=== PATIENT | male | born 2000 | race Caucasian/White ===

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

== ENCOUNTER 2022-04-09 14:58 | Emergency (ER) | payer MEDICAID, OTHER ==
--- NOTE | 2022-04-09 15:17 | ED Physician Documentation ---
History of Present Illness - Stated complaint Stated Complaint: LUNG PX/C+ - Chief complaint Chief Complaint: Resp - Additonal information Additional information: 19-year-old male presents emergency department for evaluation of lung pain. He reports that he tested positive for COVID about 6 days ago. Most of his symptoms were generalized myalgias, cough and congestion. He states that in general he is feeling better but every once in a while when he takes a deep breath he has a sharp pain. No orthopnea. No significant dyspnea. No lower extremity leg swelling. No history of tobacco or vaping. Takes no routinely prescribed medications. Patient is doubly vaccinated and boosted for COVID Review of Systems Constitutional: reports: Fever, Myalgias Cardiac: denies: Chest pain / pressure, Palpitations, Pedal edema Respiratory: reports: Dyspnea, Cough GI: reports: Reviewed and negative : reports: Reviewed and negative Skin: reports: Reviewed and negative PD PAST MEDICAL HISTORY - Past Surgical History Past Surgical History: No - Present Medications Home Medications: Ambulatory Orders Medication Instructions Recorded Confirmed Azithromycin 250 mg PO DAILY #4 tablet 07/20/15 Benzonatate [Tessalon Perle] 100 mg PO Q6HR PRN #20 capsule 11/10/17 guaiFENesin/CODEINE [Robitussin AC] 5 - 10 ml PO Q6H PRN #100 udc 11/10/17 - Allergies Allergies/Adverse Reactions: Allergies Allergy/AdvReac Type Severity Reaction Status Date / Time No Known Drug Allergies Allergy Verified 04/09/22 15:07 - Social History Does the pt smoke?: No Smoking Status: Never smoker Does the pt drink ETOH?: No Does the pt have substance abuse?: No - Immunizations Immunizations are current?: Yes PD ED PE NORMAL - General General: Alert and oriented X 3, No acute distress, Well developed/nourished - HEENT HEENT: Atraumatic, Moist mucous membranes - Neck Neck: Supple, no meningeal sign, No adenopathy - Cardiac Cardiac: RRR, No murmur - Respiratory Respiratory: No respiratory distress, Clear bilaterally - Abdomen Abdomen: Normal bowel sounds, Soft, Non tender - Back Back: No CVA TTP, No spinal TTP - Derm Derm: Normal color, Warm and dry, No rash - Extremities Extremities: No deformity, Normal ROM s pain - Neuro Neuro: Alert and oriented X 3, 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 He became symptomatic for COVID about a week ago tested +6 days ago. He is fully vaccinated and boosted. He is outside the treatment window for use of Paxlovid or Molnupiravir. On exam he appears remarkably well. Unremarkable cardiopulmonary auscultation. My exam of the chest x-ray reveals no acute focal findings. This patient would not benefit from inpatient hospitalization. I am encouraging him to continue the routine care at home which for him has included Tylenol and ibuprofen. We discussed the need to maintain masking for total of 10 days after positive test result. Otherwise emergent return precautions discussed. Departure - Departure Disposition: Home, Self Care Clinical Impression: COVID-19 virus infection Condition: Stable Record reviewed to determine appropriate education?: Yes Comments: Kai aranda are seen today in the emergency department because you tested positive for COVID-19 almost a week ago. You are outside the treatment window for oral antiviral therapy such as Paxlovid. However when we listen your heart and lungs they sound normal. Your vital signs are normal without low oxygen levels. Your chest x-ray is also normal. There is no findings of infection or pneumonia. I encourage you to continue to use Tylenol and ibuprofen for body aches and discomforts. I would expect that you continue to get better. Discusse this ED visit with your primary care provider. If at any point you have worsening symptoms, develop severe shortness of air, chest pain or have any fainting episodes and please return immediately to the ER for second evaluation
[2022-04-09 16:35] VITALS: BP 135/75
--- NOTE | 2022-04-09 16:51 | XRAY Report ---
PROCEDURE: Chest 1 View X-Ray INDICATIONS: chest pain TECHNIQUE: One view of the chest was acquired. COMPARISON: 11/10/2017 FINDINGS: Surgical changes and devices: None. Lungs and pleura: No pleural effusions or pneumothorax. Lungs are clear. Mediastinum: Mediastinal contours appear normal. Heart size is normal. Bones and chest wall: No suspicious bony lesions. Overlying soft tissues appear unremarkable. IMPRESSION: No acute cardiopulmonary findings Reviewed by: Jone Gonsalez MD on 04/09/2022 3:50 PM [facility] Approved by: Jone Gonsalez MD on 04/09/2022 3:50 PM [facility] Station ID: [id number]
== END 2022-04-09 16:35 | disposition home or self-care (01) ==
LOC: ED 14:58
DX: U07.1 COVID-19 (principal); M79.10 Myalgia, unspecified site; R07.9 Chest pain, unspecified; R05.9 Cough, unspecified; R06.00 Dyspnea, unspecified
CPT/HCPCS: 71045; 99282; 99283; Q9967

== ENCOUNTER 2022-10-21 02:12 | Emergency (ER) | payer MEDICAID ==
[2022-10-21] MEDS ORDERED: KETOROLAC 30 MG/ML VIAL IVP STA (02:30)
[2022-10-21] MEDS ORDERED: SODIUM CHLORIDE 0.9% 1,000 ML IV STA (02:30)
[2022-10-21] MEDS ORDERED: ONDANSETRON 4 MG/2 ML VIAL IVP STA (02:30)
[2022-10-21 02:45] LABS: BASOPHILS % (AUTO) 0.3 %; EOSINOPHILS % (AUTO) 0.4 %; HCT - HEMATOCRIT 44.6 % (42.0-52.0); LYMPHOCYTES # (AUTO) 0.5 10^3/uL (1.5-3.5); LYMPHOCYTES % (AUTO) 5.2 %; MEAN CORPUSCULAR HEMOGLOBIN 28.6 pg (27.0-31.0); MEAN CORPUSCULAR HGB CONC 33.6 g/dL (32.0-36.0); MEAN PLATELET VOLUME 10.4 fL (7.4-11.4); MONOCYTES # (AUTO) 0.6 10^3/uL (0.0-1.0); MONOCYTES % (AUTO) 6.4 %; NEUTROPHILS # (AUTO) 8.3 10^3/uL (1.5-6.6); NEUTROPHILS % (AUTO) 87.4 %; PLT - PLATELET COUNT 244 10^3/uL (130-450); RED BLOOD COUNT 5.25 10^6/uL (4.70-6.10); RED CELL DISTRIBUTION WIDTH 12.9 % (12.0-15.0); WHITE BLOOD COUNT 9.5 x10^3/uL (4.8-10.8)
[2022-10-21 02:54] LABS: ALBUMIN 4.7 g/dL (3.2-5.5); ALBUMIN/GLOBULIN RATIO 1.4 (1.0-2.2); BILIRUBIN,TOTAL 1.1 mg/dL (0.2-1.0); CALCIUM 8.7 mg/dL (8.5-10.3); CREATININE 0.9 mg/dL (0.6-1.2); POTASSIUM 3.6 mmol/L (3.5-5.0)
--- NOTE | 2022-10-21 03:01 | ED Physician Documentation ---
PD HPI NVD - Stated complaint Stated Complaint: FEVER/BODY PX - Chief complaint Chief Complaint: Fever - History obtained from History obtained from: Patient - Additonal information Additional information: Patient is a 22-year-old with no significant prior medical history presenting for evaluation of feeling chills, body aches, vomiting and diarrhea starting this evening around 7 PM. Patient states that he has felt chills and aches tonight and had 1 episode of emesis. He has additionally been having loose stools. He has been able to tolerate some sips of water. He reports feeling slightly lightheaded. He has had a nonproductive cough recently. He denies known sick contacts. He denies recent antibiotic use or travel. He denies blood in stools or emesis. Review of Systems Constitutional: reports: Chills. denies: Fever Cardiac: denies: Chest pain / pressure Respiratory: denies: Dyspnea GI: reports: Nausea, Vomiting, Diarrhea. denies: Abdominal Pain, Bloody / black stool : denies: Dysuria Musculoskeletal: denies: Back pain Neurologic: denies: Headache PD PAST MEDICAL HISTORY - Past Medical History Past Medical History: No - Past Surgical History Past Surgical History: No - Present Medications Home Medications: Ambulatory Orders Medication Instructions Recorded Confirmed Ondansetron Odt [Zofran] 4 mg TL Q6H PRN #10 tablet 10/21/22 minoxidiL [Minoxidil] 2.5 mg PO DAILY 10/21/22 10/21/22 - Allergies Allergies/Adverse Reactions: Allergies Allergy/AdvReac Type Severity Reaction Status Date / Time No Known Drug Allergies Allergy Verified 10/21/22 02:21 - Social History Does the pt smoke?: No Smoking Status: Never smoker Does the pt drink ETOH?: No Does the pt have substance abuse?: No - Immunizations Immunizations are current?: Yes - POLST Patient has POLST: No PD ED PE NORMAL - General General: Alert and oriented X 3, No acute distress, Well developed/nourished - HEENT HEENT: Atraumatic, Moist mucous membranes, Pharynx benign - Neck Neck: Supple, no meningeal sign - Cardiac Cardiac: Other (Tachycardic, regular rhythm) - Respiratory Respiratory: No respiratory distress, Clear bilaterally - Abdomen Abdomen: Soft, Non tender, Non distended, Other (Hyperactive bowel sounds) - Derm Derm: Warm and dry - Neuro Neuro: Normal speech Results - Vitals Vitals: Vital Signs - 24 hr 10/21/22 10/21/22 10/21/22 02:17 02:20 03:44 Temperature 37.2 C 37.2 C 36.4 C L Heart Rate 130 H 130 H 111 H Respiratory 19 19 17 Rate Blood Pressure 130/65 130/65 100/49 L O2 Saturation 95 95 95 Oxygen O2 Source Room air - Labs Labs: Laboratory Tests 10/21/22 10/21/22 02:37 02:37 WBC 9.5 RBC 5.25 Hgb 15.0 Hct 44.6 MCV 85.0 MCH 28.6 MCHC 33.6 RDW 12.9 Plt Count 244 MPV 10.4 Neut # (Auto) 8.3 H Lymph # (Auto) 0.5 L Lamar # (Auto) 0.6 Eos # (Auto) 0.0 Baso # (Auto) 0.0 Absolute Nucleated RBC 0.00 Nucleated RBC % 0.0 Sodium 137 Potassium 3.6 Chloride 106 Carbon Dioxide 21 Anion Gap 10.0 BUN 18 Creatinine 0.9 Estimated GFR (MDRD) 105 Glucose 128 H Calcium 8.7 Total Bilirubin 1.1 H AST 31 ALT 70 H Alkaline Phosphatase 82 Total Protein 8.0 Albumin 4.7 Globulin 3.3 Albumin/Globulin Ratio 1.4 Lipase 38 PD Medical Decision Making - ED course Complexity details: reviewed results, re-evaluated patient, d/w patient ED course: Patient is a 22-year-old presenting for evaluation of nausea, vomiting and diarrhea along with chills and body aches starting this evening. He is afebrile here but noted to be tachycardic. His abdominal exam is benign. He has nonlabored with his breathing.CBC and chemistries were obtained and reviewed without significant findings. Patient is feeling better after IV fluids and Zofran. He is tolerating p.o. here without difficulty. Repeat abdominal exam remains benign and heart rate has improved on the monitor.Patient symptoms are likely related to a viral process. He does not appear septic. He is ambulatory and well-appearing. He was advised to continue with supportive care and is advised on concerning symptoms to return for. Departure - Departure Disposition: 01 Home, Self Care Clinical Impression: Nausea vomiting and diarrhea Condition: Stable Instructions: ED Diet Vomiting Diarrhea Prescriptions: Ondansetron Odt [Zofran] 4 mg TL Q6H PRN #10 tablet PRN Reason: Nausea / Vomiting Comments: Your symptoms are likely related to a viral infection.I would expect your symptoms to get better over the next 24 to 48 hours. I am sending a prescription for antinausea medications to [facility] pharmacy. I would recommend starting with a liquid to bland diet in the morning and advancing as tolerated. He develop any worsening symptoms such as continued vomiting despite medication, abdominal pain, blood in stools or have any new concerns please return to the emergency department. Discharge Date/Time: 10/21/22 03:46
[2022-10-21] MEDS ORDERED: ONDANSETRON ODT 4 MG Prepack 2 TL PRN (03:22)
[2022-10-21 03:46] VITALS: BP 100/49
== END 2022-10-21 03:46 | disposition home or self-care (01) ==
LOC: ED 02:12
DX: R19.7 Diarrhea, unspecified (principal); R11.2 Nausea with vomiting, unspecified
CPT/HCPCS: 36415; 80053; 83690; 85025; 96361; 96374; 96375; 99283

== ENCOUNTER 2023-01-20 15:22 | Emergency (ER) | payer MEDICAID ==
[2023-01-20 15:34] VITALS: BP 140/90
--- NOTE | 2023-01-20 16:36 | ED Physician Documentation ---
PD HPI SKIN - Stated complaint Stated Complaint: REDDNESS SPREADING ON SKIN - Chief complaint Chief Complaint: General - History obtained from History obtained from: Patient - History of Present Illness Timing - onset: Yesterday Timing - duration: Days (22) Timing - details: Gradual onset, Now resolved Location: Chest (L side), RUE, LUE Quality / character: Itchy Improved by: Other (time) Associated symptoms: No: Fever, Myalgias, Joint pain, Headache, Facial swelling, Dyspnea, Abd pain, N/V/D, Urinary sx Contributing factors: Unknown Similar symptoms before: Has not had sx before Recently seen: Not recently seen - Additional information Additional information: Previously well 22-year-old Kai Jason reports that yesterday he noted some redness to his elbows bilaterally worse on the right than the left and he noted some redness to the left side of his chest. He also now has some involvement on the dorsum of the right hand. He is uncertain why he has this. 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 He otherwise has no specific symptoms. Review of Systems Constitutional: denies: Fever Ears: denies: Ear pain Nose: denies: Congestion Throat: denies: Sore throat Cardiac: denies: Chest pain / pressure Respiratory: denies: Cough GI: denies: Vomiting Skin: reports: Rash Musculoskeletal: denies: Neck pain, Back pain, Extremity pain PD PAST MEDICAL HISTORY - Past Surgical History Past Surgical History: No - Present Medications Home Medications: Ambulatory Orders Medication Instructions Recorded Confirmed Ondansetron Odt [Zofran] 4 mg TL Q6H PRN #10 tablet 10/21/22 minoxidiL [Minoxidil] 2.5 mg PO DAILY 10/21/22 10/21/22 - Allergies Allergies/Adverse Reactions: Allergies Allergy/AdvReac Type Severity Reaction Status Date / Time No Known Drug Allergies Allergy Verified 01/20/23 15:30 - Social History Does the pt smoke?: No Smoking Status: Never smoker Does the pt drink ETOH?: No Does the pt have substance abuse?: No - Immunizations Immunizations are current?: Yes - POLST Patient has POLST: No PD ED PE NORMAL - Vitals Vital signs reviewed: Yes (hypertensive mild ) - General General: Alert and oriented X 3, No acute distress, Well developed/nourished - HEENT HEENT: Atraumatic, PERRL, EOMI - Respiratory Respiratory: No respiratory distress - Derm Derm: Normal color, Warm and dry, Other (There are some nonspecific erythema to the dorsum of the right hand over the webspaces of the second third and third and fourth interspaces. There is no involvement around the cuticles and the appearance is not consistent with scabies. Nonspecific irritation to the skin. Resolved over the trunk. ) - Extremities Extremities: No deformity, No edema, Other (The previously seen rash over the olecranon's bilaterally has resolved) Results - Vitals Vitals: Vital Signs - 24 hr 01/20/23 15:30 Temperature 36.5 C Heart Rate 80 Respiratory 16 Rate Blood Pressure 140/90 H O2 Saturation 99 Oxygen O2 Source Room air PD Medical Decision Making - ED course Complexity details: reviewed old records, considered differential, d/w patient ED course: 22-year-old male with what appears to be contact dermatitis has had resolution of the symptoms on the side of his chest and improvement in the symptoms on his elbows and an increase in the symptoms on the dorsum of his hand. The patient does lean his elbows against the counter at work and this is a potential source for contact irritation. I discussed with the patient contact dermatitis, its pattern of exposure helping the diagnosis and the benign nature when treated properly with washing and application of hydrocortisone. Departure - Departure Disposition: 01 Home, Self Care Clinical Impression: Contact dermatitis Qualifiers: Contact dermatitis type: irritant Contact dermatitis trigger: unspecified trigger Qualified Code(s): L24.9 - Irritant contact dermatitis, unspecified cause Condition: Stable Instructions: ED Dermatitis Contact Follow-Up: Your, doctor [Other] Comments: Kai, today this looks like you have a contact dermatitis. The salient features of contact dermatitis are a pattern of exposure. The usual with contact dermatitis is once this is washed off and the irritation addressed symptoms resolve. My recommendation today is to shower when you return home and place [id number] hydrocortisone on areas that are bothering you. We do not expect progression of symptoms. Discharge Date/Time: 01/20/23 17:01
== END 2023-01-20 17:01 | disposition home or self-care (01) ==
LOC: ED 15:22
DX: L24.9 Irritant contact dermatitis, unspecified cause (principal)
CPT/HCPCS: 99281; 99283